=== PATIENT | female | born 1945 | race Native Hawaiian/Other Pacific Islander ===

== ENCOUNTER → 2019-01-06 11:54 | Outpatient (CLI) | payer MEDICARE, MEDICAID, SELFPAY ==
--- NOTE | 2019-01-06 | DI.US.S_ITS ---
PROCEDURE: US PERIPH VENOUS LOW EXTREM BI INDICATIONS: BILATERAL LEG EDEMA TECHNIQUE: Real-time imaging, as well as color and pulse Doppler interrogation, were performed of the deep veins of both legs from the inguinal ligament to the popliteal fossa. COMPARISON: None. FINDINGS: Right: The common femoral, femoral and popliteal veins are normally compressible, and free of intraluminal thrombus. Color and pulse Doppler demonstrate normal phasic intravascular flow. There is normal augmentation response to distal compression maneuver. Left: The common femoral, femoral and popliteal veins are normally compressible, and free of intraluminal thrombus. Color and pulse Doppler demonstrate normal phasic intravascular flow. There is normal augmentation response to distal compression maneuver. Numerous prominent bilateral groin lymph nodes are noted. IMPRESSION: 1. No evidence of deep vein thrombosis involving the right left lower extremities. 2. Numerous bilateral groin lymph nodes which could be reactive or neoplastic. Please correlate with clinical data. Dictated by: Andreia Mcguire MD, PhD on 01/06/2019 at 13:14 Approved by: Andreia Mcguire MD, PhD on 01/06/2019 at 13:15
== END ==
PROVIDERS: PCP Physician Assistant Medical; Visit Provider Physician Assistant Medical
DX: R60.0 Localized edema (principal)
CPT/HCPCS: 93970

== ENCOUNTER 2019-04-14 16:55 | Emergency (ER) | payer MEDICARE, OTHER, MEDICAID, SELFPAY ==
[2019-04-14] VITALS (9 sets, daily range): BP systolic 88–121; BP diastolic 51–96; PULSE 87–101; RESP 11–28; TEMP 37; O2SAT 91–100; BMI 19.2
--- NOTE | 2019-04-14 17:42 | DI.CT.S_ITS ---
PROCEDURE: CT HEAD/BRAIN WO CON INDICATIONS: weakness, frequent falls, dyspnea TECHNIQUE: Noncontrast 4.5 mm thick angled axial sections acquired from the foramen magnum to the vertex, with coronal and sagittal reformats. For radiation dose reduction, the following was used: automated exposure control, adjustment of mA and/or kV according to patient size. COMPARISON: [facility], CR, XR CHEST 2V, 04/14/2019, 17:46. [facility], CR, XR LUMBAR SPINE 2-3V, 04/14/2019, 17:46. [facility], CT, CT FACIAL BONES WO CON, 04/14/2019, 17:49. FINDINGS: Image quality: Diagnostic, with note made of motion artifact. CSF spaces: Basal cisterns are patent. No extra-axial fluid collections. The ventricles are symmetric in size and shape. Brain: No intracranial bleeds or masses. There is cerebral volume loss for age, with resultant ventricular and sulcal prominence. There are periventricular and deep white matter chronic small vessel ischemic changes. There is intracranial internal carotid artery atherosclerosis. Skull and face: Calvarium and visualized facial bones appear intact, without suspicious lesions. Sinuses: Visualized sinuses and mastoids are clear. IMPRESSION: No acute intracranial hemorrhage is seen. No acute intracranial process is seen. Note is made of age-appropriate brain parenchymal volume loss and chronic small vessel ischemic changes. Dictated by: Cali Doyle M.D. on 04/14/2019 at 17:33 Approved by: Cali Doyle M.D. on 04/14/2019 at 17:35
--- NOTE | 2019-04-14 17:42 | DI.RAD.S_ITS ---
PROCEDURE: XR LUMBAR SPINE 2-3V INDICATIONS: low back pain TECHNIQUE: 3 views of the lumbar spine were acquired. COMPARISON: None. FINDINGS: Bones: 5 [id number] vertebrae are present. There is normal bony alignment. No vertebral body compression fractures. Multilevel degenerative disc space loss and lower lumbar facet arthropathy. Soft tissues: Overlying bowel gas pattern is normal. No suspicious soft tissue calcifications. IMPRESSION: No acute compression fractures. Multilevel degenerative disc disease and facet arthropathy. Dictated by: Eliceo Mackenzie M.D. on 04/14/2019 at 19:02 Approved by: Eliceo Mackenzie M.D. on 04/14/2019 at 19:03
--- NOTE | 2019-04-14 17:42 | DI.RAD.S_ITS ---
PROCEDURE: XR CHEST 2V INDICATIONS: Dyspnea, generalized swelling, weakness TECHNIQUE: 2 views of the chest were acquired. COMPARISON: None. FINDINGS: Surgical changes and devices: None. Lungs and pleura: Pulmonary edema, bilateral pleural effusions, bibasilar atelectasis. Mediastinum: Mediastinal contours are normal. Cardiomegaly. Bones and chest wall: No suspicious bony abnormalities. Soft tissues appear unremarkable. IMPRESSION: Congestive heart failure exacerbation. Dictated by: Eliceo Mackenzie M.D. on 04/14/2019 at 19:03 Approved by: Eliceo Mackenzie M.D. on 04/14/2019 at 19:03
--- NOTE | 2019-04-14 17:45 | DI.CT.S_ITS ---
PROCEDURE: CT FACIAL BONES WO CON INDICATIONS: frequent falls, generalized weakness TECHNIQUE: Noncontrast 2.5 mm thick axial images acquired from the mandible through the frontal sinuses, with coronal and sagittal reformatting. For radiation dose reduction, the following was used: automated exposure control, adjustment of mA and/or kV according to patient size. COMPARISON: [facility], CT, CT HEAD/BRAIN WO CON, 04/14/2019, 17:49. [facility], CR, XR CHEST 2V, 04/14/2019, 17:46. [facility], CR, XR LUMBAR SPINE 2-3V, 04/14/2019, 17:46. FINDINGS: Image quality: This examination is limited by involuntary motion artifact. Bones and teeth: Orbital liriano are intact. Sinus liriano show no fracture or deformity. Nasal bones and septum are intact. Visualized portions of the mandible demonstrate no fractures or subluxation. Zygomatic arches are intact. Pterygoid plates are intact. Visualized portions of the skull base and auditory canals are intact. Degenerative changes are seen of the visualized cervical spine. Sinuses: Paranasal sinuses are aerated, without fluid levels, mucosal thickening, or mucoceles. Mastoid air cells are aerated. Soft tissues: No edema, masses, or fluid collections. No enlarged lymph nodes. No soft tissue lacerations or debris. Vascular: Visualized vascular structures appear normal in the absence of contrast. Bony vascular foramina and canals are intact. IMPRESSION: No displaced fractures can be seen. Dictated by: Cali Doyle M.D. on 04/14/2019 at 17:35 Approved by: Cali Doyle M.D. on 04/14/2019 at 17:36
[2019-04-14 18:06] LABS: Add Manual Diff / Slide Review NO; Basophils Absolute Auto 0 /uL (0-100); Basophils Percent Auto 0.5 % (0-2); Eosinophils Absolute Auto 100 /uL (0-450); Eosinophils Percent Auto 3.1 % (2-4); Hematocrit 37.7 % (36-46); Hemoglobin 12.6 g/dL (12.0-16.0); Lymphocytes Absolute Auto 1000 /uL (1100-4500); Lymphocytes Percent Auto 23.5 % (25-40); Mean Corpuscular HGB Conc 33.3 % (30-36); Mean Corpuscular Hemoglobin 32.4 PG (26-34); Mean Corpuscular Volume 97.2 fL (80-100); Monocytes Absolute Auto 300 /uL (0-900); Neutrophils Absolute Auto 2800 /uL (1500-7000); Neutrophils Percent Auto 66.9 % (50-75); Platelet Count 149 X10^3/uL (150-400); Red Blood Cell Count 3.88 X10^6/uL (4.0-5.2); Red Cell Distribution Width 16.5 % (11.6-14.8); White Blood Cell Count 4.2 X10^3/uL (4.5-11.0)
[2019-04-14 18:13] LABS: Prothrombin Time 11.1 SECONDS (10.1-12.7)
--- NOTE | 2019-04-14 18:14 | ED.WEAKNESS ---
HPI - Weakness <SHELBY AzevedoP - Last Filed: 04/14/19 22:12> General Chief complaint: Weakness Stated complaint: SWELLING OF LEGS Time Seen by Provider: 04/14/19 17:10 Source: family Mode of arrival: Wheelchair Limitations: language barrier (able to understand and speak [place] with strong accent) History of Present Illness HPI Narrative: This is a 73-year-old female, nonsmoker, who presents to ED with family member with generalize weakness, frequent falls, generalized swelling to her body which progressed from lower legs, severe exertional short of breath over last 3 weeks. Patient ran out of Lasix that she used to takes 20 mg 3 times a week for at least 1-2 months ago. Patient denies chest pain, fever, chills, nausea or vomiting, or diarrhea. Patient lives by herself and family noticed decreased appetite as well. Patient reports increasing chronic low back pain. Patient denies chest pain. Patient does not have primary care physician but sees [facility] in [place]. Related Data Home Medications Medication Instructions Recorded Confirmed furosemide See Rx Instructions .ROUTE .COMPLEX 04/14/19 04/14/19 Allergies Allergy/AdvReac Type Severity Reaction Status Date / Time No Known Drug Allergies Allergy Verified 04/14/19 17:04 Review of Systems <JORDAN Azevedo - Last Filed: 04/14/19 22:12> Review of Systems Narrative: General: See HPI HEENT: Reports bruises on her face from bumping onto a door. Denies sinus pain, ear pain, sore throat, difficulty swallowing, dizziness. Respiratory: See HPI Cardiovascular: Reports generalized edema with orthopnea. Denies chest pain, palpitation. Gastrointestinal: Reports decreased appetite. Denies nausea, vomiting, abdominal pain, diarrhea, constipation, melena. : Frequent small amount of urination. Denies dysuria, incontinence, hematuria, urinary retention. Musculoskeletal: Reports low back pain. Denies weakness, joint pain or bony pain. Skin: Denies rash, skin lesions, or other. Neurologic: Reports generalized weakness. Denies headache, numbness, change in speech, confusion, seizures, incoordination. Psychiatric: No concerning psychosocial issues. 12-point review of systems is negative except for those stated above. Patient History <JORDAN Azevedo - Last Filed: 04/14/19 22:12> Social History Smoking Status: Never smoker Substance Use Type: does not use Exam <JORDAN Azevedo - Last Filed: 04/14/19 22:12> Narrative Exam Narrative: GEN: Alert, oriented x 3, appears to be weak and tired. No acute distress noted. Noted short of breath with very short distance of movements. Head: Ecchymotic bruises on face. Normal cephalic, atraumatic. No scalp or temporal tenderness, palpable mass or rash. EYES: Pupils are equal, round, and reactive to light and accommodation. Extraocular muscles are intact bilaterally. There is no subconjunctival hemorrhage, exudate and sclera non-icteric. ENT: Bilateral auditory canals and tympanic membranes clear. Hearing grossly intact. Nose without bleeding, purulent discharge or deviation. Facial sinuses nontender to palpate. Mucous membrane moist, no mucosal lesion. Throat without erythema, tonsillar hypertrophy or exudate. Uvula in midline, airway patent. Neck: Trachea in midline. No JVD, non-tender without lymphadenopathy. No masses or thyroid megaly. Supple, non-tender and no meningeal signs. CARDIAC: Normal tachy rate and rhythm without murmurs, gallops, or rubs. No chest wall tenderness. Orthopnea. No cyanosis or pallor. Capillary refill is less than 2 seconds. RESPIRATORY: Increased work of breathing with mild exertion. Lungs are clear to auscultate bilaterally. No cough, wheezes, rales, or rhonchi. No stridor accessary muscle used. ABD: Edema to abdomen to palpate and chest. No guarding or rebound tenderness to palpate. Bowel sounds are normal in all 4 quadrants. There is no palpable masses or organomegaly. EXT: 3+ pitting edema to bilateral upper and lower extremities. Decreased strength in all extremities and difficulty with ambulation needed 3 person's assistance to move from wheelchair to bed. SKIN: Facial ecchymotic bruises, ecchymotic bruise to the left upper arm. Warm, dry, normal color for patient. No erythema, lesions or rash over visible areas. BACK: No deformity or crepitance to palpate. Bilateral low back pain and paraspinal tenderness to palpate. NEUROLOGICAL: Alert and oriented to place, time and person. Sensation and motor function intact bilaterally. No facial droops, dysphasia. PSYCHIATRIC: Good judgement and reason, without hallucinations, abnormal affect or abnormal behaviors during the examination. Initial Vital Signs Initial Vital Signs: Vital Signs Temperature 98.6 F 04/14/19 16:59 Pulse Rate 97 H 04/14/19 16:59 Respiratory Rate 22 04/14/19 16:59 Blood Pressure 108/62 04/14/19 16:59 Pulse Oximetry 95 04/14/19 16:59 <Dionne Vaughn DO - Last Filed: 04/15/19 07:33> Initial Vital Signs Initial Vital Signs: Vital Signs Temperature 98.6 F 04/14/19 16:59 Pulse Rate 97 H 04/14/19 16:59 Respiratory Rate 22 04/14/19 16:59 Blood Pressure 108/62 04/14/19 16:59 Pulse Oximetry 95 04/14/19 16:59 Scores <[facility] Hospital[facility]equan[facility]HELBY esquedaP - Last Filed: 04/14/19 22:12> GCS Mike coma scale eye opening: Spontaneous Mike coma scale verbal response: Orientated [place] coma scale motor response: Obey commands Mike coma scale total score: 15 HEART Score Heart Score history: Moderately Suspicious Heart Score EKG: Non-Specific repolarization disturbance Heart Score Age: > or = 65 years old Heart Score risk factors: 1-2 risk factors Heart Score troponin: > 3 times normal limit Heart Score Total: 7 Course <Akash GaurangJORDAN Kahn - Last Filed: 04/14/19 22:12> Course Course Narrative: elevated BNP to 977. Decision to Admit Date: 04/14/19 Decision to Admit time: 18:40 Orders Ordered: Discontinued Medications Furosemide (Lasix) 40 mg IV NOW ONE Stop: 04/14/19 18:27 Last Admin: 04/14/19 18:44 Dose: 40 mg Documented by: KIARA Consultations Consultation #1: Hospitalist Anselmo Ramachandran-elevated BNP, Troponin, CKMB. Concern for elevated cardiac enzymes for possible cardiac catheterization and requested to consult branch operations manager. Time: 19:00 Consultation #2: [place] [employer] [employer]-Plan for echocardiogram tomorrow morning. Possible cardiac catheterization procedure if decreased ejection fraction. Diuresing patient for next 2-3 days. Transfer to [facility]. Time: 20:55 Consultation #3: [facility] hospitalist, Dr. Roa Kindly accepted the patient's care with the above treatment plan Time: 21:00 Vital Signs Vital signs: Vital Signs - 8 hr 04/14/19 16:59 04/14/19 17:52 04/14/19 18:34 Temperature 98.6 F Pulse Rate 97 H 93 H 98 H Respiratory Rate 22 27 H 23 Blood Pressure 108/62 Blood Pressure [Left Arm] 121/80 111/96 H Pulse Oximetry 95 95 94 04/14/19 19:41 04/14/19 21:00 Temperature Pulse Rate 91 H 95 H Respiratory Rate 19 28 H Blood Pressure Blood Pressure [Left Arm] 88/51 L 115/71 Pulse Oximetry 100 91 <Dionne Vaughn DO - Last Filed: 04/15/19 07:33> Orders Ordered: Discontinued Medications Furosemide (Lasix) 40 mg IV NOW ONE Stop: 04/14/19 18:27 Last Admin: 04/14/19 18:44 Dose: 40 mg Documented by: KIARA Vital Signs Vital signs: Vital Signs - 8 hr 04/14/19 16:59 04/14/19 17:52 04/14/19 18:34 Temperature 98.6 F Pulse Rate 97 H 93 H 98 H Respiratory Rate 22 27 H 23 Blood Pressure 108/62 Blood Pressure [Left Arm] 121/80 111/96 H Pulse Oximetry 95 95 94 04/14/19 19:41 04/14/19 21:00 Temperature Pulse Rate 91 H 95 H Respiratory Rate 19 28 H Blood Pressure Blood Pressure [Left Arm] 88/51 L 115/71 Pulse Oximetry 100 91 MDM - Weakness <JORDAN Azevedo - Last Filed: 04/14/19 22:12> Differential Diagnosis Differential diagnosis: Likely acute myocardial infarction, anemia, sepsis and other (Kidney failure, acute CHF, Stroke) Medical Records Attestation: I reviewed the patient's medical records. Lab Data Attestation: I reviewed the patient's lab results. Result diagrams: 04/14/19 17:50 04/14/19 17:50 Labs: Lab Results 04/14/19 04/14/19 04/14/19 Range/Units 17:35 17:50 17:50 WBC 4.2 L (4.5-11.0) X10^3/uL RBC 3.88 L (4.0-5.2) X10^6/uL Hgb 12.6 (12.0-16.0) g/dL Hct 37.7 (36-46) % MCV 97.2 (80-100) fL MCH 32.4 (26-34) PG MCHC 33.3 (30-36) % RDW 16.5 H (11.6-14.8) % Plt Count 149 L (150-400) X10^3/uL Neut % (Auto) 66.9 (50-75) % Lymph % (Auto) 23.5 L (25-40) % Lewis % (Auto) 6.0 (3-14) % Eos % (Auto) 3.1 (2-4) % Baso % (Auto) 0.5 (0-2) % Neut # (Auto) 2800 (5044-1152) /uL Lymph # (Auto) 1000 L (1342-8673) /uL Lewis # (Auto) 300 (0-900) /uL Eos # (Auto) 100 (0-450) /uL Baso # (Auto) 0 (0-100) /uL PT (10.1-12.7) SECONDS INR (0.9-1.3) APTT (26.4-36.2) SECONDS Sodium 138 (137-145) mmol/L Potassium 3.7 (3.4-5.1) mmol/L Chloride 105 (98-107) mmol/L Carbon Dioxide 29 (22-32) mmol/L BUN 15 (7-17) mg/dL Creatinine 0.60 (0.52-1.04) mg/dL Estimated GFR > 60.0 (>60) mL/min BUN/Creatinine Ratio 25.0 H (6-22) Glucose 102 (80-110) mg/dL Lactate (0.7-2.1) mmol/L Calcium 8.6 (8.4-10.2) mg/dL Total Bilirubin 0.8 (0.2-1.3) mg/dL AST 70 H (14-36) IU/L ALT 36 H (<35) IU/L Alkaline Phosphatase 113 (38-126) U/L Total Creatine Kinase 364 H (30-135) U/L CK-MB (CK-2) 6.26 H (<2.37) ng/mL CK-MB (CK-2) Rel Index 1.7 (1.5-5.0) % Troponin I 0.139 H* (0.01-0.034) ng/mL B-Natriuretic Peptide 997 H (<100) Total Protein 5.4 L (6.3-8.2) g/dL Albumin 3.0 L (3.5-5.0) g/dL Globulin 2.4 (1.7-4.1) g/dL Albumin/Globulin Ratio 1.3 (1.0-2.8) Lipase 71 (23-300) U/L Urine Color Yellow Urine Appearance Sl cloudy Urine pH 5.0 (4.5-8.0) Ur Specific [place] >=1.030 H (1.000-1.035) Urine Protein 3+ H (Negative) Urine Glucose (UA) Negative (Negative) g/dL Urine Ketones Negative (NEGATIVE) Urine Occult Blood 3+ H (Negative) Urine Nitrate Negative (Negative) Urine Bilirubin Negative (NEGATIVE) Urine Urobilinogen 1.0 (0.2) E.U./dL Ur Leukocyte Esterase Negative (NEGATIVE) Urine RBC 1-5/hpf (0-5/HPF) Urine WBC 1-5/hpf (0-5/HPF) Ur Squamous Epith Cells 1-5 /hpf (0-5/HPF) Amorphous Sediment 2+ Urine Bacteria Few (2-10) H (None) Urine Mucus 2+ H (Negative) Ur Culture Indicated? Specimen cultured 04/14/19 04/14/19 04/14/19 Range/Units 17:50 17:50 21:10 WBC (4.5-11.0) X10^3/uL RBC (4.0-5.2) X10^6/uL Hgb (12.0-16.0) g/dL Hct (36-46) % MCV (80-100) fL MCH (26-34) PG MCHC (30-36) % RDW (11.6-14.8) % Plt Count (150-400) X10^3/uL Neut % (Auto) (50-75) % Lymph % (Auto) (25-40) % Lewis % (Auto) (3-14) % Eos % (Auto) (2-4) % Baso % (Auto) (0-2) % Neut # (Auto) (5584-0926) /uL Lymph # (Auto) (1666-2890) /uL Lewis # (Auto) (0-900) /uL Eos # (Auto) (0-450) /uL Baso # (Auto) (0-100) /uL PT 11.1 (10.1-12.7) SECONDS INR 1.0 (0.9-1.3) APTT 33 (26.4-36.2) SECONDS Sodium (137-145) mmol/L Potassium (3.4-5.1) mmol/L Chloride (98-107) mmol/L Carbon Dioxide (22-32) mmol/L BUN (7-17) mg/dL Creatinine (0.52-1.04) mg/dL Estimated GFR (>60) mL/min BUN/Creatinine Ratio (6-22) Glucose (80-110) mg/dL Lactate 1.3 (0.7-2.1) mmol/L Calcium (8.4-10.2) mg/dL Total Bilirubin (0.2-1.3) mg/dL AST (14-36) IU/L ALT (<35) IU/L Alkaline Phosphatase (38-126) U/L Total Creatine Kinase 305 H (30-135) U/L CK-MB (CK-2) 5.97 H (<2.37) ng/mL CK-MB (CK-2) Rel Index 2.0 (1.5-5.0) % Troponin I 0.133 H* (0.01-0.034) ng/mL B-Natriuretic Peptide (<100) Total Protein (6.3-8.2) g/dL Albumin (3.5-5.0) g/dL Globulin (1.7-4.1) g/dL Albumin/Globulin Ratio (1.0-2.8) Lipase (23-300) U/L Urine Color Urine Appearance Urine pH (4.5-8.0) Ur Specific [place] (1.000-1.035) Urine Protein (Negative) Urine Glucose (UA) (Negative) g/dL Urine Ketones (NEGATIVE) Urine Occult Blood (Negative) Urine Nitrate (Negative) Urine Bilirubin (NEGATIVE) Urine Urobilinogen (0.2) E.U./dL Ur Leukocyte Esterase (NEGATIVE) Urine RBC (0-5/HPF) Urine WBC (0-5/HPF) Ur Squamous Epith Cells (0-5/HPF) Amorphous Sediment Urine Bacteria (None) Urine Mucus (Negative) Ur Culture Indicated? Imaging Data CT-Head: Radiologist's impression: [address] [address] [address] Scan Report Signed Patient: Isabella Orozco LMR#: [id number] : 1946Acct:[id number] Age/Sex: 73 / FDate of Service: 04/14/19 Loc: ED Accession Number: [id number] Procedure: CT head/brain wo con Ordering Provider: Akash Lind PROCEDURE: CT HEAD/BRAIN WO CON INDICATIONS: weakness, frequent falls, dyspnea TECHNIQUE: Noncontrast 4.5 mm thick angled axial sections acquired from the foramen magnum to the vertex, with coronal and sagittal reformats. For radiation dose reduction, the following was used: automated exposure control, adjustment of mA and/or kV according to patient size. COMPARISON: [facility], CR, XR CHEST 2V, 04/14/2019, 17:46. [facility], CR, XR LUMBAR SPINE 2-3V, 04/14/2019, 17:46. [facility], CT, CT FACIAL BONES WO CON, 04/14/2019, 17:49. FINDINGS: Image quality: Diagnostic, with note made of motion artifact. CSF spaces: Basal cisterns are patent. No extra-axial fluid collections. The ventricles are symmetric in size and shape. Brain: No intracranial bleeds or masses. There is cerebral volume loss for age, with resultant ventricular and sulcal prominence. There are periventricular and deep white matter chronic small vessel ischemic changes. There is intracranial internal carotid artery atherosclerosis. Skull and face: Calvarium and visualized facial bones appear intact, without suspicious lesions. Sinuses: Visualized sinuses and mastoids are clear. IMPRESSION: No acute intracranial hemorrhage is seen. No acute intracranial process is seen. Note is made of age-appropriate brain parenchymal volume loss and chronic small vessel ischemic changes. Dictated by: Cali Doyle M.D. on 04/14/2019 at 17:33 Approved by: Cali Doyle M.D. on 04/14/2019 at 17:35 CT-Facial bones: Radiologist's impression: [address] [address] [address] Scan Report Signed Patient: Isabella Orozco LMR#: [id number] : 4Acct:[id number] Age/Sex: 73 / FDate of Service: 04/14/19 Loc: ED Accession Number: [id number] Procedure: CT facial bones wo con Ordering Provider: Akash Lind PROCEDURE: CT FACIAL BONES WO CON INDICATIONS: frequent falls, generalized weakness TECHNIQUE: Noncontrast 2.5 mm thick axial images acquired from the mandible through the frontal sinuses, with coronal and sagittal reformatting. For radiation dose reduction, the following was used: automated exposure control, adjustment of mA and/or kV according to patient size. COMPARISON: [facility], CT, CT HEAD/BRAIN WO CON, 04/14/2019, 17:49. [facility], CR, XR CHEST 2V, 04/14/2019, 17:46. [facility], CR, XR LUMBAR SPINE 2-3V, 04/14/2019, 17:46. FINDINGS: Image quality: This examination is limited by involuntary motion artifact. Bones and teeth: Orbital liriano are intact. Sinus liriano show no fracture or deformity. Nasal bones and septum are intact. Visualized portions of the mandible demonstrate no fractures or subluxation. Zygomatic arches are intact. Pterygoid plates are intact. Visualized portions of the skull base and auditory canals are intact. Degenerative changes are seen of the visualized cervical spine. Sinuses: Paranasal sinuses are aerated, without fluid levels, mucosal thickening, or mucoceles. Mastoid air cells are aerated. Soft tissues: No edema, masses, or fluid collections. No enlarged lymph nodes. No soft tissue lacerations or debris. Vascular: Visualized vascular structures appear normal in the absence of contrast. Bony vascular foramina and canals are intact. IMPRESSION: No displaced fractures can be seen. Dictated by: Cali Doyle M.D. on 04/14/2019 at 17:35 Approved by: Cali Doyle M.D. on 04/14/2019 at 17:36 Chest x-ray: Radiologist's impression: [address] [address] XRay Report Signed Patient: Isabella Orozco LMR#: [id number] : 1945cct:[id number] Age/Sex: 73 / FDate of Service: 04/14/19 Loc: ED Accession Number: [id number] Procedure: XR chest 2V Ordering Provider: Akash Lind PROCEDURE: XR CHEST 2V INDICATIONS: Dyspnea, generalized swelling, weakness TECHNIQUE: 2 views of the chest were acquired. COMPARISON: None. FINDINGS: Surgical changes and devices: None. Lungs and pleura: Pulmonary edema, bilateral pleural effusions, bibasilar atelectasis. Mediastinum: Mediastinal contours are normal. Cardiomegaly. Bones and chest wall: No suspicious bony abnormalities. Soft tissues appear unremarkable. IMPRESSION: Congestive heart failure exacerbation. Dictated by: Eliceo Mackenzie M.D. on 04/14/2019 at 19:03 Approved by: Eliceo Mackenzie M.D. on 04/14/2019 at 19:03 XR-Lumbar: Radiologist's impression: [address] [address] XRay Report Signed Patient: Isabella Orozco LMR#: [id number] : 4Acct:[id number] Age/Sex: 73 / FDate of Service: 04/14/19 Loc: ED Accession Number: [id number] Procedure: XR lumbar spine 2-3V Ordering Provider: Akash Lind PROCEDURE: XR LUMBAR SPINE 2-3V INDICATIONS: low back pain TECHNIQUE: 3 views of the lumbar spine were acquired. COMPARISON: None. FINDINGS: Bones: 5 [id number] vertebrae are present. There is normal bony alignment. No vertebral body compression fractures. Multilevel degenerative disc space loss and lower lumbar facet arthropathy. Soft tissues: Overlying bowel gas pattern is normal. No suspicious soft tissue calcifications. IMPRESSION: No acute compression fractures. Multilevel degenerative disc disease and facet arthropathy. Dictated by: Eliceo Mackenzie M.D. on 04/14/2019 at 19:02 Approved by: Eliceo Mackenzie M.D. on 04/14/2019 at 19:03 ECG Data Attestation: I personally reviewed and interpreted this ECG as follows: Prior ECG tracings: not available for review Interpretation: Sinus rhythm rate at 93. Marked right [place] deviation. Low QRS for limb/chest leads. Q-waves in V1 through V4. #2 EKG at 2111 Sinus rhythm rate at 101 with no significant changes from the 1st EKG. MDM Narrative Medical decision making narrative: This is a 73 year female who appears to be medically fragile presents to ED with generalized weakness, frequent falls, significant exertional short of breath after ambulating few steps. Report generalized swelling to her body which started from the lower extremity to progressively travel to upper body and extremities. Family reports the patient has symptoms has gotten slowly worse over last 3 weeks. Possibly off Lasix 20 mg 3 times a week dose at least 1-2 months. Patient's daughter states patient does not have significant medical history in the past including cardiac, liver, pulmonary, kidney dysfunction. Patient required pre person's assistance to move from wheelchair to bed when she arrived. Patient's BNP was 997 with elevated Troponin I of 0.139, CKMB of 6.26 and Total CK was 364. Mildly elevated liver function test with mildly decreased total protein and albumin. Normal kidney function test with K of 3.7. EKGs showed sinus rhythm rate in 90s and 100's with marked right a 6 deviation with a significantly low QRS for limb and chest leads. Q-waves were seen in V1 through V4 without obvious ST elevation. Patient's chest x-ray indicated pulmonary edema with bilateral pleural effusions and atelectasis and CHF exacerbation. CT of head and facial bones shows no acute findings. Lumbar spine x-ray was obtained with patient's complain of bilateral low back pain any showed no acute compression fractures but the degenerative disc disease with facet arthropathy. Fournier catheter was inserted upon patient's arrival to ED with minimal output initially. However, after 40 mg of IV Lasix patient had put out so far about 1400 ml of light, clear urine. Urine sample is being cultured at this time for few bacteria and urine mucus. O2 sat in RA from 90-92%. Provided o2 by NC on 3L for SOB at rest and to keep O2 sat >93%. The 2nd Troponin has improved at 0.133, CK-MB of 5.97 and Total CK of 305. Discussed these findings with the hospitalist but concerns were expressed due to patient's elevated cardiac enzymes and possible candidate for cardiac kne procedure. Dr. Gottlieb was consulted, [facility] at [facility], and was suggested echocardiogram should be done tomorrow morning and possible cardiac catheterization if patient has decreased ejection fraction and suggested transfer to [facility]. Dr. Abreu, [facility] hospitalist, kindly accepted patient's care for admission to [facility] for patient's evaluation and treatment. All required documentations have been completed and patient and family members were informed of pending transfer to [facility] and they verbalized understanding and agrees with the treatment plan. <Dionne Vaughn, DO - Last Filed: 04/15/19 07:33> Lab Data Labs: Lab Results 04/14/19 04/14/19 04/14/19 Range/Units 17:35 17:50 17:50 WBC 4.2 L (4.5-11.0) X10^3/uL RBC 3.88 L (4.0-5.2) X10^6/uL Hgb 12.6 (12.0-16.0) g/dL Hct 37.7 (36-46) % MCV 97.2 (80-100) fL MCH 32.4 (26-34) PG MCHC 33.3 (30-36) % RDW 16.5 H (11.6-14.8) % Plt Count 149 L (150-400) X10^3/uL Neut % (Auto) 66.9 (50-75) % Lymph % (Auto) 23.5 L (25-40) % Lewis % (Auto) 6.0 (3-14) % Eos % (Auto) 3.1 (2-4) % Baso % (Auto) 0.5 (0-2) % Neut # (Auto) 2800 (3194-4920) /uL Lymph # (Auto) 1000 L (6419-1450) /uL Lewis # (Auto) 300 (0-900) /uL Eos # (Auto) 100 (0-450) /uL Baso # (Auto) 0 (0-100) /uL PT (10.1-12.7) SECONDS INR (0.9-1.3) APTT (26.4-36.2) SECONDS Sodium 138 (137-145) mmol/L Potassium 3.7 (3.4-5.1) mmol/L Chloride 105 (98-107) mmol/L Carbon Dioxide 29 (22-32) mmol/L BUN 15 (7-17) mg/dL Creatinine 0.60 (0.52-1.04) mg/dL Estimated GFR > 60.0 (>60) mL/min BUN/Creatinine Ratio 25.0 H (6-22) Glucose 102 (80-110) mg/dL Lactate (0.7-2.1) mmol/L Calcium 8.6 (8.4-10.2) mg/dL Total Bilirubin 0.8 (0.2-1.3) mg/dL AST 70 H (14-36) IU/L ALT 36 H (<35) IU/L Alkaline Phosphatase 113 (38-126) U/L Total Creatine Kinase 364 H (30-135) U/L CK-MB (CK-2) 6.26 H (<2.37) ng/mL CK-MB (CK-2) Rel Index 1.7 (1.5-5.0) % Troponin I 0.139 H* (0.01-0.034) ng/mL B-Natriuretic Peptide 997 H (<100) Total Protein 5.4 L (6.3-8.2) g/dL Albumin 3.0 L (3.5-5.0) g/dL Globulin 2.4 (1.7-4.1) g/dL Albumin/Globulin Ratio 1.3 (1.0-2.8) Lipase 71 (23-300) U/L Urine Color Yellow Urine Appearance Sl cloudy Urine pH 5.0 (4.5-8.0) Ur Specific [place] >=1.030 H (1.000-1.035) Urine Protein 3+ H (Negative) Urine Glucose (UA) Negative (Negative) g/dL Urine Ketones Negative (NEGATIVE) Urine Occult Blood 3+ H (Negative) Urine Nitrate Negative (Negative) Urine Bilirubin Negative (NEGATIVE) Urine Urobilinogen 1.0 (0.2) E.U./dL Ur Leukocyte Esterase Negative (NEGATIVE) Urine RBC 1-5/hpf (0-5/HPF) Urine WBC 1-5/hpf (0-5/HPF) Ur Squamous Epith Cells 1-5 /hpf (0-5/HPF) Amorphous Sediment 2+ Urine Bacteria Few (2-10) H (None) Urine Mucus 2+ H (Negative) Ur Culture Indicated? Specimen cultured 04/14/19 04/14/19 04/14/19 Range/Units 17:50 17:50 21:10 WBC (4.5-11.0) X10^3/uL RBC (4.0-5.2) X10^6/uL Hgb (12.0-16.0) g/dL Hct (36-46) % MCV (80-100) fL MCH (26-34) PG MCHC (30-36) % RDW (11.6-14.8) % Plt Count (150-400) X10^3/uL Neut % (Auto) (50-75) % Lymph % (Auto) (25-40) % Lewis % (Auto) (3-14) % Eos % (Auto) (2-4) % Baso % (Auto) (0-2) % Neut # (Auto) (3465-7533) /uL Lymph # (Auto) (1783-7564) /uL Lewis # (Auto) (0-900) /uL Eos # (Auto) (0-450) /uL Baso # (Auto) (0-100) /uL PT 11.1 (10.1-12.7) SECONDS INR 1.0 (0.9-1.3) APTT 33 (26.4-36.2) SECONDS Sodium (137-145) mmol/L Potassium (3.4-5.1) mmol/L Chloride (98-107) mmol/L Carbon Dioxide (22-32) mmol/L BUN (7-17) mg/dL Creatinine (0.52-1.04) mg/dL Estimated GFR (>60) mL/min BUN/Creatinine Ratio (6-22) Glucose (80-110) mg/dL Lactate 1.3 (0.7-2.1) mmol/L Calcium (8.4-10.2) mg/dL Total Bilirubin (0.2-1.3) mg/dL AST (14-36) IU/L ALT (<35) IU/L Alkaline Phosphatase (38-126) U/L Total Creatine Kinase 305 H (30-135) U/L CK-MB (CK-2) 5.97 H (<2.37) ng/mL CK-MB (CK-2) Rel Index 2.0 (1.5-5.0) % Troponin I 0.133 H* (0.01-0.034) ng/mL B-Natriuretic Peptide (<100) Total Protein (6.3-8.2) g/dL Albumin (3.5-5.0) g/dL Globulin (1.7-4.1) g/dL Albumin/Globulin Ratio (1.0-2.8) Lipase (23-300) U/L Urine Color Urine Appearance Urine pH (4.5-8.0) Ur Specific [place] (1.000-1.035) Urine Protein (Negative) Urine Glucose (UA) (Negative) g/dL Urine Ketones (NEGATIVE) Urine Occult Blood (Negative) Urine Nitrate (Negative) Urine Bilirubin (NEGATIVE) Urine Urobilinogen (0.2) E.U./dL Ur Leukocyte Esterase (NEGATIVE) Urine RBC (0-5/HPF) Urine WBC (0-5/HPF) Ur Squamous Epith Cells (0-5/HPF) Amorphous Sediment Urine Bacteria (None) Urine Mucus (Negative) Ur Culture Indicated? Discharge Plan Departure Patient Disposition: [facility] Clinical Impression: Elevated troponin, Generalized weakness Acute exacerbation of CHF (congestive heart failure) Qualifiers: Heart failure type: unspecified Qualified Code(s): I50.9 - Heart failure, unspecified Discharge Date/Time: 04/14/19 22:30 Prescriptions: No Action furosemide 20 mg tablet See Rx Instructions .ROUTE .COMPLEX RF: 0 Referrals: Ally Mills [Primary Care Provider] -
[2019-04-14 18:15] LABS: PTT Partial Thromboplastin Tim 33 SECONDS (26.4-36.2)
[2019-04-14 18:18] LABS: Lactate (Lactic Acid) 1.3 mmol/L (0.7-2.1)
[2019-04-14 18:19] LABS: Alanine Aminotransferase 36 IU/L (<35); Albumin Globulin Ratio 1.3 (1.0-2.8); Alkaline Phosphatase 113 U/L (38-126); Aspartate Aminotransferase 70 IU/L (14-36); Bilirubin Total 0.8 mg/dL (0.2-1.3); Blood Urea Nitrogen 15 mg/dL (7-17); Calcium 8.6 mg/dL (8.4-10.2); Carbon Dioxide 29 mmol/L (22-32); Chloride 105 mmol/L (98-107); Creatine Kinase 364 U/L (30-135); Estimated Glomerular Filt Rate > 60.0 mL/min (>60); Globulin 2.4 g/dL (1.7-4.1); Glucose 102 mg/dL (80-110); HEMOLYSIS < 15 (0-50); Lipase 71 U/L (23-300); Potassium 3.7 mmol/L (3.4-5.1); Sodium 138 mmol/L (137-145); Total Protein 5.4 g/dL (6.3-8.2)
[2019-04-14 18:22] LABS: B Type Natriuretic Peptide 997 (<100)
[2019-04-14 18:23] LABS: Appearance Urine UA SL CLOUDY; Bilirubin Urine UA NEGATIVE (NEGATIVE); Color Urine UA YELLOW; Glucose Urine UA NEGATIVE (Negative); Ketones Urine UA NEGATIVE (NEGATIVE); Leukocyte Esterase Urine UA NEGATIVE (NEGATIVE); Nitrite Urine UA NEGATIVE (Negative); Occult Blood Urine UA 3+ (Negative); Protein Urine UA 3+ (Negative); Specific Gravity Urine UA >=1.030 (1.000-1.035)
[2019-04-14 18:34] LABS: CKMB % Relative Index 1.7 % (1.5-5.0); Creatine Kinase MB 6.26 ng/mL (<2.37)
[2019-04-14 18:36] LABS: Amorphous Sediment Urine 2+; Bacteria Urine Few (2-10); Culture Indicated Urine Specimen Cultured; Mucus Urine 2+ (Negative); RBC Urine 1-5/HPF (0-5/HPF); Squamous Epithelial Cell Urine 1-5 /HPF (0-5/HPF); WBC Urine 1-5/HPF (0-5/HPF)
--- NOTE | 2019-04-14 18:36 | PC.NURSE ---
pt arrived to ER with +4 anasarca. pt reports difficulty walking, arrived to Er with facial bruising- states last week she walked into a wall. states she ran out of [employer] x 7 days now. family at bedside. pt complains of sob with attempting to ambulate. lay flat or move. aware.
[2019-04-14] MEDS: FUROSEMIDE 40 MG/4 ML VIAL IV (18:44)
[2019-04-14 19:10] LABS: Troponin I 0.139 ng/mL (0.01-0.034)
[2019-04-14 21:27] LABS: Creatine Kinase 305 U/L (30-135)
[2019-04-14 21:42] LABS: Creatine Kinase MB 5.97 ng/mL (<2.37)
[2019-04-14 21:45] LABS: Troponin I 0.133 ng/mL (0.01-0.034)
--- NOTE | 2019-04-14 21:45 | PC.NURSE ---
Pt O2 RA sat 90%, pt placed on 3L NC by provider. Pt O2 Sat on 3L 94%.
== END 2019-04-14 22:30 | disposition short-term general hospital (02) ==
PROVIDERS: Emergency Provider Nurse Practitioner Family; PCP Physician Assistant Medical
DX: R79.89 Other specified abnormal findings of blood chemistry (principal); R53.1 Weakness; I50.9 Heart failure, unspecified; R60.9 Edema, unspecified; Z91.81 History of falling; M54.5 Low back pain; R06.02 Shortness of breath
CPT/HCPCS: 36415; 51701; 70450; 70486; 71046; 72100; 80053; 81001; 82550; 82553; 83605; 83690; 83880; 84484; 85025; 85610; 85730; 87040; 87086; 93005; 96374; 99284; 99285; J1940